=== PATIENT | male | born 1945 | race Caucasian/White ===

== ENCOUNTER 2020-11-20 13:52 | Inpatient (IN) ==
[2020-11-20] MEDS ORDERED: cefOXitin 2,000 MG in Water for inj. (sterile) 20 ML IVP ONE (14:28)
[2020-11-20] MEDS ORDERED: Ringers Solution, Lactated 1,000 ML IVC SCH (14:30)
[2020-11-20] MEDS ORDERED: *HR* HYDROmorphone PF 0.5 MG/0.5 ML SYRINGE IVP PRN (15:00)
[2020-11-20] MEDS ORDERED: *HR* OxyCODONE Immed Rel 5 MG TABLET PO PRN (15:00)
[2020-11-20] MEDS ORDERED: Ondansetron 4 MG/2 ML VIAL IVP PRN ×2 (15:00→20:34)
[2020-11-20] MEDS ORDERED: *HR* Succinylcholine 200 MG/10 ML VIAL IVP ONE (15:44)
[2020-11-20] MEDS ORDERED: *HR* FentaNYL (PF) 100 MCG/2 ML VIAL ONE ×2 (15:44→17:59)
[2020-11-20] MEDS ORDERED: *HR* Propofol 200 MG/20 ML VIAL IVP ONE (15:44)
[2020-11-20] MEDS ORDERED: *HR* Midazolam HCl 2 MG/2 ML VIAL ONE (15:44)
[2020-11-20] MEDS ORDERED: Lidocaine -MPF 2% 2 ML VIAL ONE (15:44)
[2020-11-20] MEDS ORDERED: Sugammadex Sodium 200 MG/2 ML VIAL IV ONE (15:44)
[2020-11-20] MEDS ORDERED: *HR* Rocuronium Bromide 50 MG/5 ML VIAL ONE (15:44)
[2020-11-20] MEDS ORDERED: Ondansetron 4 MG/2 ML VIAL ONE (15:44)
[2020-11-20] MEDS ORDERED: Lidocaine HCL 4 ML Topical Solution (Laryng-O-Jet Kit Sterile Pak) TP ONE (15:50)
[2020-11-20] MEDS ORDERED: *HR* HYDROMORPHONE 2 MG/ML VIAL ONE (18:19)
[2020-11-20] MEDS ORDERED: Acetaminophen IV 1,000 MG/100 ML BAG IVPB ONE (18:22)
[2020-11-20] MEDS ORDERED: Albumin Human 5% 12.5 GM/250 ML IV.SOLN ONE (18:44)
[2020-11-20] MEDS ORDERED: EPHEDrine 50 MG/ML VIAL ONE (19:02)
[2020-11-20] MEDS ORDERED: Albumin Human 5% 0 GM/0 ML IV.SOLN ONE (19:09)
[2020-11-20 19:29] LABS: BUN/Creatinine Ratio 19 (6-26); Blood Urea Nitrogen 15 mg/dL (8-23); Calcium 7.9 mg/dL (8.6-10.3); Carbon Dioxide 24 mEq/L (23-29); Chloride 105 mEq/L (98-107); Glucose 152 mg/dL (70-105); Osmolality,Calculated 290 (280-300); Potassium 3.9 mEq/L (3.5-5.1); Sodium 138 mEq/L (136-145); eGFR For African Americans > 60 (> 60); eGFR For Non-African Americans > 60 (> 60)
[2020-11-20] MEDS ORDERED: *HR* Labetalol 20 MG/4 ML SYRINGE IVP ONE (19:58)
[2020-11-20] MEDS ORDERED: Naloxone 0.4 MG/ML INJ IVP PRN (20:34)
[2020-11-20] MEDS ORDERED: *HR* Metoprolol 5 MG/5 ML VIAL IVP PRN (20:38)
[2020-11-20] MEDS: 0.9 % Sodium Chloride 1,000 ML IVC SCH (20:48)
[2020-11-20 20:59] LABS: Basophils % 0.3 %; Eosinophils % 0.3 %; Hematocrit 40.7 % (37.5-50.1); Hemoglobin 14.2 g/dL (12.9-16.9); Immature Granulocytes % 0.5 % (0-4); Lymphocytes # 1.3 K/mcL (0.6-4.6); Lymphocytes % 10.4 %; Mean Corpuscular HGB Conc 34.9 g/dL (31.6-35.5); Mean Corpuscular Hemoglobin 29.2 pg (28.0-33.3); Mean Corpuscular Volume 83.6 fL (83.0-100.0); Mean Platelet Volume 10.9 fL (9.4-12.4); Monocytes # 0.2 K/mcL (0.0-1.3); Monocytes % 1.9 %; Neutrophils # 10.5 K/mcL (1.6-8.9); Platelet Count 113 K/mcL (140-400); Red Blood Count 4.87 M/mcL (4.19-5.50); Segmented Neutrophils % 86.6 %; White Blood Count 12.1 K/mcL (4.3-11.1)
[2020-11-20] MEDS ORDERED: clonazePAM 1 MG TABLET PO PRN (21:00)
[2020-11-20 21:14] LABS: Magnesium 1.6 mg/dL (1.6-2.6); Phosphorous 2.6 mg/dL (2.7-4.5)
[2020-11-20] MEDS: Gabapentin 300 MG CAPSULE PO SCH (22:12)
[2020-11-20] MEDS: Melatonin 3 MG TABLET PO SCH (22:12)
[2020-11-20] MEDS: *HR* HYDROmorphone 2 MG/ML SYRINGE IVP PRN (22:26)
[2020-11-20] MEDS: Acetaminophen IV 1,000 MG/100 ML BAG IVPB SCH (23:39)
[2020-11-21] MEDS: Acetaminophen IV 1,000 MG/100 ML BAG IVPB SCH ×3 (05:11→17:27)
[2020-11-21 05:24] LABS: Basophils % 0.2 %; Eosinophils # 0.1 K/mcL (0.0-0.6); Eosinophils % 0.9 %; Hematocrit 39.7 % (37.5-50.1); Hemoglobin 13.7 g/dL (12.9-16.9); Immature Granulocytes % 0.3 % (0-4); Lymphocytes # 1.5 K/mcL (0.6-4.6); Lymphocytes % 9.8 %; Mean Corpuscular HGB Conc 34.5 g/dL (31.6-35.5); Mean Corpuscular Hemoglobin 28.4 pg (28.0-33.3); Mean Corpuscular Volume 82.4 fL (83.0-100.0); Mean Platelet Volume 11.2 fL (9.4-12.4); Monocytes # 0.9 K/mcL (0.0-1.3); Monocytes % 5.8 %; Platelet Count 122 K/mcL (140-400); Red Blood Count 4.82 M/mcL (4.19-5.50); White Blood Count 14.9 K/mcL (4.3-11.1)
[2020-11-21 05:26] LABS: Neutrophils # 12.4 K/mcL (1.6-8.9)
[2020-11-21 05:40] LABS: BUN/Creatinine Ratio 23 (6-26); Blood Urea Nitrogen 17 mg/dL (8-23); Calcium 8.2 mg/dL (8.6-10.3); Carbon Dioxide 25 mEq/L (23-29); Chloride 105 mEq/L (98-107); Glucose 206 mg/dL (70-105); Magnesium 1.8 mg/dL (1.6-2.6); Osmolality,Calculated 294 (280-300); Phosphorous 4.3 mg/dL (2.7-4.5); Potassium 3.8 mEq/L (3.5-5.1); Sodium 138 mEq/L (136-145); eGFR For African Americans > 60 (> 60); eGFR For Non-African Americans > 60 (> 60)
[2020-11-21] MEDS: *HR* HYDROmorphone 2 MG/ML SYRINGE IVP PRN ×2 (07:38→12:14)
[2020-11-21] MEDS: 0.9 % Sodium Chloride 1,000 ML IVC SCH (07:38)
[2020-11-21] MEDS: Rivastigmine Tartrate (oral) 1.5 MG CAPSULE PO SCH ×3 (11:56→20:21)
[2020-11-21] MEDS: Isosorbide MONOnitrate (24 HR) 30 MG TAB.ER.24H PO SCH (14:11)
[2020-11-21] MEDS: Gabapentin 300 MG CAPSULE PO SCH ×2 (14:12→20:21)
[2020-11-21] MEDS: D5% in 0.45% NACL w KCl 20 MEQ/1,000 ML MLS IVC SCH (15:34)
[2020-11-21] MEDS: lisinopriL 10 MG TABLET PO SCH (18:13)
[2020-11-21] MEDS: Melatonin 3 MG TABLET PO SCH (20:21)
[2020-11-21] MEDS ORDERED: *HR* LORazepam 2 MG/ML VIAL IVP STA (23:50)
[2020-11-22] MEDS: Dexmedetomidine HCl 400 MCG/100 ML MLS IVC SCH ×4 (00:34→23:10)
[2020-11-22] MEDS: Acetaminophen IV 1,000 MG/100 ML BAG IVPB SCH ×4 (00:34→18:28)
[2020-11-22 01:49] LABS: Basophils % 0.5 %; Eosinophils % 0.4 %; Hematocrit 34.6 % (37.5-50.1); Immature Granulocytes % 0.4 % (0-4); Lymphocytes # 1.1 K/mcL (0.6-4.6); Lymphocytes % 12.9 %; Mean Corpuscular HGB Conc 33.8 g/dL (31.6-35.5); Mean Corpuscular Hemoglobin 28.1 pg (28.0-33.3); Mean Corpuscular Volume 83.2 fL (83.0-100.0); Mean Platelet Volume 11.3 fL (9.4-12.4); Monocytes # 0.6 K/mcL (0.0-1.3); Monocytes % 7.5 %; Neutrophils # 6.7 K/mcL (1.6-8.9); Platelet Count 101 K/mcL (140-400); Red Blood Count 4.16 M/mcL (4.19-5.50); Segmented Neutrophils % 78.3 %; White Blood Count 8.5 K/mcL (4.3-11.1)
[2020-11-22 01:52] LABS: Hemoglobin 11.7 g/dL (12.9-16.9)
[2020-11-22 02:06] LABS: BUN/Creatinine Ratio 21 (6-26); Blood Urea Nitrogen 15 mg/dL (8-23); Carbon Dioxide 23 mEq/L (23-29); Chloride 105 mEq/L (98-107); Glucose 230 mg/dL (70-105); Magnesium 1.9 mg/dL (1.6-2.6); Osmolality,Calculated 290 (280-300); Phosphorous 1.2 mg/dL (2.7-4.5); Potassium 3.5 mEq/L (3.5-5.1); Sodium 136 mEq/L (136-145); eGFR For African Americans > 60 (> 60); eGFR For Non-African Americans > 60 (> 60)
[2020-11-22] MEDS: Rivastigmine Tartrate (oral) 1.5 MG CAPSULE PO SCH ×2 (05:13→20:35)
[2020-11-22] MEDS: *HR* HYDROmorphone 2 MG/ML SYRINGE IVP PRN ×2 (05:31→15:06)
[2020-11-22] MEDS: D5% in 0.45% NACL w KCl 20 MEQ/1,000 ML MLS IVC SCH (07:01)
[2020-11-22] MEDS: Isosorbide MONOnitrate (24 HR) 30 MG TAB.ER.24H PO SCH (13:27)
[2020-11-22] MEDS: Gabapentin 300 MG CAPSULE PO SCH ×2 (13:27→20:50)
[2020-11-22] MEDS: *HR* Heparin 5,000 UNIT/ML VIAL SQ SCH ×2 (13:32→20:27)
[2020-11-22] MEDS ORDERED: Sodium Phosphate 30 MMOL in 0.9 % Sodium Chloride 100 ML IVPB ONE (14:09)
[2020-11-22] MEDS ORDERED: OLANZapine 10 MG VIAL IM ONE ×2 (16:18→22:39)
[2020-11-22] MEDS: D5% in 0.9% NACL w KCl 20 MEQ/1,000 ML MLS IVC SCH (16:25)
[2020-11-22] MEDS: lisinopriL 10 MG TABLET PO SCH (18:36)
[2020-11-22] MEDS: Melatonin 3 MG TABLET PO SCH (20:28)
[2020-11-23] MEDS: Acetaminophen IV 1,000 MG/100 ML BAG IVPB SCH ×5 (00:16→23:38)
[2020-11-23] MEDS: *HR* Heparin 5,000 UNIT/ML VIAL SQ SCH ×3 (03:40→20:01)
[2020-11-23] MEDS: Dexmedetomidine HCl 400 MCG/100 ML MLS IVC SCH ×3 (03:47→19:17)
[2020-11-23 04:38] LABS: Immature Granulocytes % 0.7 % (0-4); Mean Corpuscular Volume 83.1 fL (83.0-100.0)
[2020-11-23 04:40] LABS: Basophils # 0.1 K/mcL (0.0-0.2); Basophils % 1.2 %; Eosinophils # 0.5 K/mcL (0.0-0.6); Hematocrit 29.9 % (37.5-50.1); Hemoglobin 10.4 g/dL (12.9-16.9); Immature Platelets 4.3 % (1.1-6.1); Lymphocytes # 1.3 K/mcL (0.6-4.6); Lymphocytes % 23.4 %; Mean Corpuscular HGB Conc 34.8 g/dL (31.6-35.5); Mean Corpuscular Hemoglobin 28.9 pg (28.0-33.3); Mean Platelet Volume 11.6 fL (9.4-12.4); Monocytes # 0.3 K/mcL (0.0-1.3); Monocytes % 5.5 %; Neutrophils # 3.4 K/mcL (1.6-8.9); Platelet Count 101 K/mcL (140-400); Red Cell Distribution Width 12.9 % (11.5-14.5); Segmented Neutrophils % 60.2 %; White Blood Count 5.7 K/mcL (4.3-11.1)
[2020-11-23 04:46] LABS: BUN/Creatinine Ratio 11 (6-26); Blood Urea Nitrogen 8 mg/dL (8-23); Calcium 8.1 mg/dL (8.6-10.3); Carbon Dioxide 28 mEq/L (23-29); Chloride 111 mEq/L (98-107); Glucose 283 mg/dL (70-105); Osmolality,Calculated 303 (280-300); Potassium 3.6 mEq/L (3.5-5.1); Sodium 142 mEq/L (136-145); eGFR For African Americans > 60 (> 60); eGFR For Non-African Americans > 60 (> 60)
[2020-11-23] MEDS: *HR* HYDROmorphone 2 MG/ML SYRINGE IVP PRN (04:46)
[2020-11-23] MEDS: D5% in 0.9% NACL w KCl 20 MEQ/1,000 ML MLS IVC SCH (05:43)
[2020-11-23 05:45] LABS: Phosphorous 2.2 mg/dL (2.7-4.5)
[2020-11-23] MEDS ORDERED: Insulin LISPRO 300 UNITS/3 ML VIAL SUBQ ONE (05:45)
[2020-11-23] MEDS ORDERED: 0.9 % Sodium Chloride 1,000 ML IVC SCH ×2 (08:30→18:30)
[2020-11-23] MEDS ORDERED: Aspirin 81 MG TAB.CHEW PO SCH (09:00)
[2020-11-23] MEDS ORDERED: OLANZapine 10 MG VIAL IM PRN ×2 (10:56→18:29)
[2020-11-23] MEDS: Rivastigmine Tartrate (oral) 1.5 MG CAPSULE PO SCH ×2 (11:00→20:00)
[2020-11-23] MEDS: Gabapentin 300 MG CAPSULE PO SCH ×2 (11:02→20:01)
[2020-11-23] MEDS: Isosorbide MONOnitrate (24 HR) 30 MG TAB.ER.24H PO SCH (11:05)
[2020-11-23] MEDS ORDERED: 0.9 % Sodium Chloride 500 ML IV ONE (13:50)
[2020-11-23] MEDS ORDERED: lisinopriL 10 MG TABLET PO SCH (15:58)
[2020-11-23] MEDS ORDERED: lisinopriL 10 MG TABLET PO ONE (16:15)
[2020-11-23] MEDS: 0.9 % Sodium Chloride 1,000 ML IVC SCH (16:38)
[2020-11-23] MEDS ORDERED: *HR* LORazepam 2 MG/ML VIAL IVP ONE (17:09)
[2020-11-23] MEDS ORDERED: *HR* LORazepam 2 MG/ML VIAL ONE (17:12)
[2020-11-23] MEDS ORDERED: Naloxone 0.4 MG/ML INJ IVP PRN (18:29)
[2020-11-23] MEDS ORDERED: *HR* HYDROmorphone 2 MG/ML SYRINGE IVP PRN (18:29)
[2020-11-23] MEDS ORDERED: Ondansetron 4 MG/2 ML VIAL IVP PRN (18:29)
[2020-11-23] MEDS ORDERED: clonazePAM 1 MG TABLET PO PRN (18:29)
[2020-11-23] MEDS ORDERED: Acetaminophen 325 MG TABLET PO ONE (19:51)
[2020-11-23] MEDS: Melatonin 3 MG TABLET PO SCH (20:26)
[2020-11-24] MEDS: *HR* Heparin 5,000 UNIT/ML VIAL SQ SCH ×3 (03:47→21:37)
[2020-11-24] MEDS: Dexmedetomidine HCl 400 MCG/100 ML MLS IVC SCH ×2 (03:48→19:18)
[2020-11-24] MEDS ORDERED: *HR* Metoprolol 5 MG/5 ML VIAL IVP ONE ×2 (05:06→09:48)
[2020-11-24] MEDS: Acetaminophen IV 1,000 MG/100 ML BAG IVPB SCH ×3 (05:19→17:18)
[2020-11-24 07:51] LABS: Basophils # 0.1 K/mcL (0.0-0.2); Basophils % 0.5 %; Eosinophils # 1.2 K/mcL (0.0-0.6); Eosinophils % 13.6 %; Hematocrit 31.9 % (37.5-50.1); Hemoglobin 11.2 g/dL (12.9-16.9); Immature Granulocytes % 1.2 % (0-4); Lymphocytes % 22.4 %; Mean Corpuscular HGB Conc 35.1 g/dL (31.6-35.5); Mean Corpuscular Hemoglobin 29.2 pg (28.0-33.3); Mean Corpuscular Volume 83.3 fL (83.0-100.0); Monocytes # 0.7 K/mcL (0.0-1.3); Monocytes % 7.1 %; Platelet Count 146 K/mcL (140-400); Red Blood Count 3.83 M/mcL (4.19-5.50); Red Cell Distribution Width 13.2 % (11.5-14.5); Segmented Neutrophils % 55.2 %
[2020-11-24 07:55] LABS: White Blood Count 9.1 K/mcL (4.3-11.1)
[2020-11-24 08:01] LABS: BUN/Creatinine Ratio 16 (6-26); Blood Urea Nitrogen 12 mg/dL (8-23); Calcium 8.3 mg/dL (8.6-10.3); Carbon Dioxide 23 mEq/L (23-29); Chloride 110 mEq/L (98-107); Glucose 154 mg/dL (70-105); Osmolality,Calculated 293 (280-300); Potassium 3.3 mEq/L (3.5-5.1); Sodium 140 mEq/L (136-145); eGFR For African Americans > 60 (> 60); eGFR For Non-African Americans > 60 (> 60)
[2020-11-24] MEDS ORDERED: Isosorbide MONOnitrate (24 HR) 30 MG TAB.ER.24H PO SCH (09:00)
[2020-11-24] MEDS: Aspirin 81 MG TAB.CHEW PO SCH (09:15)
[2020-11-24] MEDS: Rivastigmine Tartrate (oral) 1.5 MG CAPSULE PO SCH ×2 (09:15→22:35)
[2020-11-24] MEDS: Gabapentin 300 MG CAPSULE PO SCH ×2 (09:17→21:38)
[2020-11-24] MEDS: 0.9 % Sodium Chloride 1,000 ML IVC SCH (12:41)
[2020-11-24] MEDS ORDERED: Potassium Chloride 40 MEQ, Lidocaine 1% 2 ML in 0.9 % Sodium Chloride 500 ML IVPB ONE (15:37)
[2020-11-24] MEDS ORDERED: lisinopriL 10 MG TABLET PO SCH ×2 (18:00)
[2020-11-24] MEDS: Melatonin 3 MG TABLET PO SCH (21:38)
[2020-11-25] MEDS: Acetaminophen IV 1,000 MG/100 ML BAG IVPB SCH ×3 (00:18→11:24)
[2020-11-25 02:52] VITALS: O2SAT 98
[2020-11-25 04:48] LABS: Basophils # 0.1 K/mcL (0.0-0.2); Basophils % 0.8 %; Eosinophils # 0.7 K/mcL (0.0-0.6); Eosinophils % 7.5 %; Hematocrit 34.8 % (37.5-50.1); Immature Granulocytes % 0.3 % (0-4); Lymphocytes # 1.5 K/mcL (0.6-4.6); Lymphocytes % 17.3 %; Mean Corpuscular HGB Conc 34.5 g/dL (31.6-35.5); Mean Corpuscular Hemoglobin 28.9 pg (28.0-33.3); Mean Corpuscular Volume 83.9 fL (83.0-100.0); Mean Platelet Volume 10.1 fL (9.4-12.4); Monocytes # 0.6 K/mcL (0.0-1.3); Monocytes % 6.4 %; Neutrophils # 5.8 K/mcL (1.6-8.9); Platelet Count 162 K/mcL (140-400); Red Blood Count 4.15 M/mcL (4.19-5.50); Red Cell Distribution Width 13.4 % (11.5-14.5); Segmented Neutrophils % 67.7 %; White Blood Count 8.6 K/mcL (4.3-11.1)
[2020-11-25 05:04] LABS: BUN/Creatinine Ratio 18 (6-26); Blood Urea Nitrogen 12 mg/dL (8-23); Calcium 8.4 mg/dL (8.6-10.3); Carbon Dioxide 19 mEq/L (23-29); Chloride 110 mEq/L (98-107); Glucose 154 mg/dL (70-105); Osmolality,Calculated 293 (280-300); Potassium 3.3 mEq/L (3.5-5.1); Sodium 140 mEq/L (136-145); eGFR For African Americans > 60 (> 60); eGFR For Non-African Americans > 60 (> 60)
[2020-11-25 05:13] LABS: Platelet Estimate Normal (Normal)
[2020-11-25] MEDS: *HR* Heparin 5,000 UNIT/ML VIAL SQ SCH ×2 (05:41→11:27)
[2020-11-25] MEDS: 0.9 % Sodium Chloride 1,000 ML IVC SCH (05:50)
[2020-11-25] MEDS ORDERED: E-Z-PAQUE (BARIUM SULF) SUSP 1 BOTTLE PO ONE (10:12)
[2020-11-25] MEDS ORDERED: E-Z-HD (BARIUM SULF) SUSPENSION PO ONE (10:12)
[2020-11-25] MEDS ORDERED: Docusate Oral Soln 100 MG/10 ML UDC PO SCH (11:00)
[2020-11-25] MEDS: Rivastigmine Tartrate (oral) 1.5 MG CAPSULE PO SCH (11:21)
[2020-11-25] MEDS: Gabapentin 300 MG CAPSULE PO SCH (11:22)
[2020-11-25] MEDS: Aspirin 81 MG TAB.CHEW PO SCH (11:23)
[2020-11-25 11:41] VITALS: BP 182/97; PULSE 114; TEMP 98.8
== END 2020-11-25 13:40 | disposition home or self-care (01) | DRG 329 ==
LOC: SAMDAY 13:52 → ICNU 19:13 → 3ANU 11-24 17:51
PROVIDERS: ADMIT Surgery; ATTEND Surgery